=== PATIENT | female | born 1950 | race Caucasian/White ===

== ENCOUNTER 2016-03-10 21:15 | Emergency (ER) | payer OTHER ==
[2016-03-10 21:32] VITALS: BP 135/73; PULSE 60; TEMP 98.3; BMI 26.2
[2016-03-10] MEDS ORDERED: CEPHALEXIN MONOHYDRATE 500 MG CAPSULE (UD) PO ONE (22:21)
--- NOTE | 2016-03-10 22:21 | PDOC ---
History of Present Illness - General Chief Complaint: Wound Infection Stated Complaint: PCP SENT/INFECTED [facility] Time Seen by Provider: 03/10/16 22:02 History Source: Patient Exam Limitations: No Limitations - History of Present Illness Timing/Duration: reports: just prior to arrival Severity: Yes: mild Location: reports: other (umbilicus) Past History - Travel Traveled outside of the country in the last 30 days: No Close contact w/someone who was outside of country & ill: No - Past Medical History Allergies/Adverse Reactions: Allergies Allergy/AdvReac Type Severity Reaction Status Date / Time No Known Allergies Allergy Verified 03/10/16 21:29 Home Medications: Ambulatory Orders Cephalexin [Keflex] 500 mg PO BID #14 capsule 03/10/16 Levothyroxine [Synthroid -] 112 mcg PO DAILY 03/10/16 Seizures: Yes (hypo) - Surgical History Cholecystectomy: Yes - Psycho/Social/Smoking Cessation Hx Suicidal Ideation: No Smoking History: Never smoked Review of Systems - Review of Systems Able to Perform ROS?: Yes Comments:: 03/10/16 22:17 CONSTITUTIONAL: Absent: fever, chills, diaphoresis, generalized weakness, malaise, loss of appetite HEENT: Absent: rhinorrhea, nasal congestion, throat pain, throat swelling, difficulty swallowing, mouth swelling, ear pain, eye pain, visual Changes CARDIOVASCULAR: Absent: chest pain, loss of consciousness, palpitations, irregular heart rate, peripheral edema RESPIRATORY: Absent: cough, shortness of breath, dyspnea with exertion, orthopnea, wheezing, stridor, hemoptysis GASTROINTESTINAL: Absent: abdominal pain, abdominal distension, nausea, vomiting, diarrhea, constipation, melena, hematochezia GENITOURINARY: Absent: dysuria, frequency, urgency, hesitancy, hematuria, flank pain, genital pain SKIN: +erythema to supra umbilicus with scant purulent discharge; +malodorous Absent: rash, itching, pallor HEMATOLOGIC/IMMUNOLOGIC: Absent: easy bleeding, easy bruising, lymphadenopathy, frequent infections ENDOCRINE: Absent: unexplained weight gain, unexplained weight loss, heat intolerance, cold intolerance NEUROLOGIC: Absent: headache, focal weakness or paresthesias, dizziness, unsteady gait, seizure, mental status changes, bladder or bowel incontinence PSYCHIATRIC: Absent: anxiety, depression, suicidal or homicidal ideation, hallucinations. Is the patient limited Martiniquais proficient: No *Physical Exam - Vital Signs Last Vital Signs Temp Pulse Resp BP Pulse Ox 98.3 F 60 18 135/73 100 03/10/16 21:30 03/10/16 21:30 03/10/16 21:30 03/10/16 21:30 03/10/16 21:30 Progress Note - Progress Note Progress Note: 65-year-old female presents to the emergency department complaining of redness/ purulent discharge to the umbilicus since yesterday. Patient spoke to her PMD earlier today and was directed to come to the emergency department for treatment. Patient denies any fever, chills, nausea/vomiting, abdominal pains or urinary symptoms. Patient is unsure how the redness came about. Patient denies scratching or any injuries to the umbilicus. *DC/Admit/Observation/Transfer Diagnosis at time of Disposition: Wound infection - Discharge Dispostion Condition at time of disposition: Stable - Prescriptions Prescriptions: Cephalexin [Keflex] 500 mg PO BID #14 capsule - Referrals Referrals: Ghulam Abbott MD [Primary Care Provider] - - Patient Instructions Printed Discharge Instructions: DI for Wound Infection Additional Instructions: Wash with soap and water Rx: antibiotics/Kelfex 500mg take 1 tablet twice a dy for 7 days Wound check in the ER or with your PMD in 2 days Return back to the emergency department if you notice any red streaks, increased discharge/pain I've cultured your bellybutton in the emergency department. The results should return in approximately 2-[address] on a broad-spectrum antibiotic. We will call you to change the antibiotic if needed. If you are concerned or wish to call us to find out the culture result: our number is [phone]
[2016-03-10] MEDS ORDERED: CEPHALEXIN MONOHYDRATE 500 MG CAPSULE (UD) ONE (22:25)
== END 2016-03-10 22:31 | disposition home or self-care (01) ==
LOC: JERFT 21:15
DX: L08.82 Omphalitis not of newborn (principal)
CPT/HCPCS: 87070; 87205; 99281-25